=== PATIENT | female | born 1945 | race Caucasian/White ===

== ENCOUNTER → 2021-04-04 | Outpatient (CLI) | payer OTHER ==
[~2021-04-04] MED LIST: COLACE 100MG C100 MG PO
== END ==
LOC: KOH-I 04-03 08:45
DX: M51.16 Intervertebral disc disorders with radiculopathy, lumbar region (principal); M47.26 Other spondylosis with radiculopathy, lumbar region
CPT/HCPCS: 72148

== ENCOUNTER → 2021-10-07 | Outpatient (CLI) | payer OTHER | LOC: KOH-I 13:59 | DX: M79.671 Pain in right foot (principal); M79.672 Pain in left foot; M19.072 Primary osteoarthritis, left ankle and foot; M19.071 Primary osteoarthritis, right ankle and foot | CPT/HCPCS: 73610; 73630 ==